=== PATIENT | male | born 1985 | race Caucasian/White ===

== ENCOUNTER 2017-01-09 07:48 | Emergency (ER) | payer OTHER ==
[2017-01-09 09:07] LABS: HEMOGLOBIN 15.7 gm/dl (14.0-17.5); RED BLOOD COUNT 5.85 M/UL (4.20-5.50); WHITE BLOOD COUNT 9.5 K/UL (4.5-11.0)
[2017-01-09 09:24] LABS: BUN/CREATININE RATIO 22 (0-10)
== END 2017-01-09 12:20 | disposition home or self-care (01) ==
LOC: ER1 07:48
PROVIDERS: Physician Assistant
DX: R10.31 Right lower quadrant pain (principal); R10.32 Left lower quadrant pain; R11.2 Nausea with vomiting, unspecified; R19.7 Diarrhea, unspecified; I10 Essential (primary) hypertension; Z79.899 Other long term (current) drug therapy
CPT/HCPCS: 36415; 80053; 81001; 82150; 83690; 85025; 93005; 96360; 96361; 99284; J7050; Q9962

== ENCOUNTER → 2020-05-03 | Outpatient (CLI) | payer OTHER ==
[~2020-05-03] MED LIST: PROTONIX40 MG PO
[2020-05-03 11:03] LABS: RED BLOOD COUNT 5.52 M/UL (4.20-5.50); WHITE BLOOD COUNT 9.4 K/UL (4.5-11.0)
[2020-05-03 11:26] LABS: BUN/CREATININE RATIO 22 (0-10)
[2020-05-04 10:10] LABS: RHEUMATOID ARTHRITIS FACTOR 10.3 IU/mL (0.0-13.9); TRIIODOTHYRONINE (T3) 106 ng/dL (71-180)
== END ==
LOC: LAB 10:22
PROVIDERS: Family Medicine
DX: E03.9 Hypothyroidism, unspecified (principal); M25.50 Pain in unspecified joint
CPT/HCPCS: 36415; 80053; 84436; 84443; 84480; 85025; 85652; 86038; 86140; 86431

== ENCOUNTER → 2020-05-10 | Outpatient (CLI) | payer OTHER ==
[2020-05-11 10:09] LABS: THYROXINE (T4) 9.1 ug/dL (4.5-12.0)
== END ==
LOC: LAB 10:32
PROVIDERS: Family Medicine
DX: E03.9 Hypothyroidism, unspecified (principal)
CPT/HCPCS: 36415; 84436; 84443; 84480

== ENCOUNTER → 2020-12-19 | Outpatient (CLI) | payer OTHER ==
[2020-12-19 08:36] LABS: HEMOGLOBIN 15.2 gm/dl (14.0-17.5); RED BLOOD COUNT 5.22 M/UL (4.20-5.50); WHITE BLOOD COUNT 5.1 K/UL (4.5-11.0)
[2020-12-19 08:57] LABS: BUN/CREATININE RATIO 11 (0-10)
== END ==
LOC: LAB 08:07
PROVIDERS: Family Medicine
DX: Z03.89 Encounter for observation for other suspected diseases and conditions ruled out (principal)
CPT/HCPCS: 36415; 80053; 85025

== ENCOUNTER 2020-12-27 12:55 | Inpatient (IN) | payer OTHER ==
[~2020-12-27] VITALS: Ht 185.4 cm; Wt 129.3 kg
[~2020-12-27 12:55] MED LIST changes: +VITAMIN D21250 MCG PO
[2020-12-27 14:03] LABS: HEMOGLOBIN 14.5 gm/dl (14.0-17.5); RED BLOOD COUNT 5.34 M/UL (4.20-5.50); WHITE BLOOD COUNT 6.3 K/UL (4.5-11.0)
[2020-12-27 14:25] LABS: BUN/CREATININE RATIO 8 (0-10)
[2020-12-28 03:44] LABS: RED BLOOD COUNT 5.07 M/UL (4.20-5.50); WHITE BLOOD COUNT 5.1 K/UL (4.5-11.0)
[2020-12-28 04:34] LABS: BUN/CREATININE RATIO 16 (0-10)
[2020-12-28] MEDS ORDERED: PRAVASTATIN SOD40 MG PO (11:46)
[2020-12-28] MEDS ORDERED: VIIBRYD20 MG PO (11:46)
[2020-12-28] MEDS ORDERED: LEVOTHYROXINE88 MCG PO (11:46)
[2020-12-28] MEDS ORDERED: ZANAFLEX 4 MG TA4 MG PO (11:47)
[2020-12-28] MEDS ORDERED: AMLODIPINE BESYL5 MG PO (11:47)
[2020-12-28] MEDS ORDERED: HYDROCHLOROTH12.5 M1 PO (11:48)
[2020-12-28] MEDS ORDERED: TENORMIN 25 MG25 MG PO (11:48)
[2020-12-28] MEDS ORDERED: PIOGLITAZONE HC30 MG PO (11:49)
[2020-12-28] MEDS ORDERED: METFORMIN HCL1000 MG PO (11:49)
[2020-12-28] MEDS ORDERED: PHENTERMINE H37.5 M1 PO (11:50)
[2020-12-28 13:22] LABS: BUN/CREATININE RATIO 17 (0-10)
[2020-12-29 07:43] LABS: HEMOGLOBIN 12.5 gm/dl (14.0-17.5); RED BLOOD COUNT 4.58 M/UL (4.20-5.50)
[2020-12-29 07:45] LABS: WHITE BLOOD COUNT 10.9 K/UL (4.5-11.0)
[2020-12-29 08:12] LABS: BUN/CREATININE RATIO 18 (0-10)
[2020-12-30 08:10] LABS: HEMOGLOBIN 11.9 gm/dl (14.0-17.5); RED BLOOD COUNT 4.34 M/UL (4.20-5.50); WHITE BLOOD COUNT 11.9 K/UL (4.5-11.0)
[2020-12-30 08:18] LABS: BUN/CREATININE RATIO 19 (0-10)
[2020-12-31 10:53] LABS: HEMOGLOBIN 12.2 gm/dl (14.0-17.5); RED BLOOD COUNT 4.46 M/UL (4.20-5.50); WHITE BLOOD COUNT 12.4 K/UL (4.5-11.0)
[2020-12-31 11:11] LABS: BUN/CREATININE RATIO 17 (0-10)
[2021-01-01 08:20] LABS: HEMOGLOBIN 12.2 gm/dl (14.0-17.5); RED BLOOD COUNT 4.5 M/UL (4.20-5.50); WHITE BLOOD COUNT 13.6 K/UL (4.5-11.0)
[2021-01-01 08:54] LABS: BUN/CREATININE RATIO 21 (0-10)
[2021-01-03 08:15] LABS: HEMOGLOBIN 13.3 gm/dl (14.0-17.5); RED BLOOD COUNT 4.78 M/UL (4.20-5.50); WHITE BLOOD COUNT 16.7 K/UL (4.5-11.0)
[2021-01-03 08:39] LABS: BUN/CREATININE RATIO 19 (0-10)
[2021-01-03] MEDS ORDERED: OMNICEF 300 MG300 MG PO (19:57)
[2021-01-03] MEDS ORDERED: ZINC SULFATE50 MG PO (19:57)
[2021-01-03] MEDS ORDERED: ALBUTEROL2.5 MG/3 M INH (19:57)
[2021-01-03] MEDS ORDERED: DECADRON4 MG PO (19:57)
[2021-01-03] MEDS ORDERED: ZITHROMAX500 MG PO (19:57)
[2021-01-03] MEDS ORDERED: DECADRON6 MG PO (19:57)
[2021-01-03] MEDS ORDERED: VITAMIN C 500500 MG PO (19:57)
== END 2021-01-03 21:55 | disposition home or self-care (01) | DRG 177 ==
LOC: ER1 12:55 → CDU 16:57 → MED SURG 4 16:57
PROVIDERS: Internal Medicine; Physician Assistant; ADMIT Internal Medicine
PROC: XW033E5 Introduction of Remdesivir Anti-infective into Peripheral Vein, Percutaneous Approach, New Technology Group 5 (ICD-10-PCS; principal; 2020-12-27)
PROC: 3E0333Z Introduction of Anti-inflammatory into Peripheral Vein, Percutaneous Approach (ICD-10-PCS; 2020-12-27)
DX: U07.1 COVID-19 (principal); J12.82 Pneumonia due to coronavirus disease 2019; J96.01 Acute respiratory failure with hypoxia; J15.9 Unspecified bacterial pneumonia; J98.11 Atelectasis; I10 Essential (primary) hypertension; E78.5 Hyperlipidemia, unspecified; E11.9 Type 2 diabetes mellitus without complications; E89.0 Postprocedural hypothyroidism; M62.838 Other muscle spasm; F41.9 Anxiety disorder, unspecified; E05.00 Thyrotoxicosis with diffuse goiter without thyrotoxic crisis or storm; E87.6 Hypokalemia; F32.9 Major depressive disorder, single episode, unspecified; E66.9 Obesity, unspecified; Z79.84 Long term (current) use of oral hypoglycemic drugs; Z80.8 Family history of malignant neoplasm of other organs or systems; Z79.890 Hormone replacement therapy; Z83.3 Family history of diabetes mellitus; Z68.37 Body mass index [BMI] 37.0-37.9, adult
CPT/HCPCS: 36415; 36600; 71045; 80048; 80053; 82550; 82553; 82728; 82803; 82962; 83036; 83605; 83615; 83735; 83880; 84100; 84132; 84439; 84443; 85025; 85027; 85379; 86140; 86769; 87040; 93005; 94640; 94664; 94760; 96374; 99285; J0456; J0696; J1100; J1650; J7030; Q9967; U0002

== ENCOUNTER → 2021-02-13 | Outpatient (CLI) | payer OTHER ==
[~2021-02-13] MED LIST changes: +ALBUTEROL2.5 MG/3 M INH; +AMLODIPINE BESYL5 MG PO; +DECADRON4 MG PO; +DECADRON6 MG PO; +HYDROCHLOROTH12.5 M1 PO; +LEVOTHYROXINE88 MCG PO; +METFORMIN HCL1000 MG PO; +OMNICEF 300 MG300 MG PO; +PHENTERMINE H37.5 M1 PO; +PIOGLITAZONE HC30 MG PO; +PRAVASTATIN SOD40 MG PO; +TENORMIN 25 MG25 MG PO; +VIIBRYD20 MG PO; +VITAMIN C 500500 MG PO; +ZANAFLEX 4 MG TA4 MG PO; +ZINC SULFATE50 MG PO; +ZITHROMAX500 MG PO
== END ==
LOC: LAB 09:07
DX: E11.9 Type 2 diabetes mellitus without complications (principal); E03.9 Hypothyroidism, unspecified
CPT/HCPCS: 36415; 83036; 84443